=== PATIENT | female | born 1995 | race Caucasian/White ===

== ENCOUNTER 2016-08-09 17:18 | Emergency (ER) | payer OTHER | END 2016-08-09 18:30 | disposition home or self-care (01) | LOC: FER 17:18 | DX: S56.311A Strain of extensor or abductor muscles, fascia and tendons of right thumb at forearm level, initial encounter (principal); W01.0XXA Fall on same level from slipping, tripping and stumbling without subsequent striking against object, initial encounter | CPT/HCPCS: 73130; J1885 ==

== ENCOUNTER 2016-09-08 18:40 | Emergency (ER) | payer OTHER | END 2016-09-08 19:33 | disposition home or self-care (01) | LOC: FER 18:40 | DX: Z32.01 Encounter for pregnancy test, result positive (principal) ==

== ENCOUNTER 2016-11-14 09:29 | Emergency (ER) | payer OTHER ==
[2016-11-14 11:33] LABS: BILIRUBIN NEGATIVE (NEGATIVE); BLOOD 3+ Ery/uL (NEGATIVE); CLARITY HAZY (CLEAR); COLOR YELLOW (YELLOW); GLUCOSE (U) NORMAL (NORMAL); KETONE (U) TRACE mg/dL (NEGATIVE); LEUKOCYTES 3+ Leu/uL (NEGATIVE); NITRITE POSITIVE (NEGATIVE); PROTEIN TRACE (LOW) mg/dL (NEGATIVE); UROBILINOGEN 0.2 mg/dL (0.2-1.0); pH 7.5 (5.0-9.0)
[2016-11-14 11:49] LABS: BACTERIA 2+; URINARY RBC 20-50; URINARY WBC 20-50
== END 2016-11-14 12:13 | disposition home or self-care (01) ==
LOC: FER 09:29
PROVIDERS: Emergency Medicine
DX: O23.42 Unspecified infection of urinary tract in pregnancy, second trimester (principal); Z3A.14 14 weeks gestation of pregnancy
CPT/HCPCS: 36415; 81001; 84702; 99284

== ENCOUNTER 2020-12-23 10:13 | Emergency (ER) | payer OTHER ==
[~2020-12-23 10:13] MED LIST: KEFLEX500 MG PO; METHERGINE0.2 MG PO; NORCO 5-325 TA1 EACH PO; VIBRAMYCIN100 M1 PO
[2020-12-23 10:51] LABS: BASOPHIL 0.3 % (0-2); EOSINOPHIL 1.3 % (0-5); HCT 44.5 % (37.0-47.0); HGB 14.7 g/dl (12.5-16.0); LYMPHOCYTE 16.2 % (15-48); MCH 30.4 pg (25.0-31.0); MCV 92.1 fL (78.0-100.0); MONOCYTE 4.1 % (0-12); MPV 10.3 fL (6.0-9.5); NEUTROPHIL 77.9 % (41-80); NRBC 0; PLT 220 K/uL (150-400); RBC 4.83 M/uL (4.20-5.40); WBC 11.3 K/uL (4.0-10.5)
[2020-12-23 11:15] LABS: ALBUMIN 3.8 g/dL (3.4-5.0); BILIRUBIN - TOTAL 0.4 mg/dL (0.2-1.0); BUN/CREAT RATIO (CALC) 19.6 RATIO; CREATININE 0.46 mg/dL (0.51-0.95); GLOBULIN (CALCULATION) 3.3 g/dL; TOTAL PROTEIN 7.1 g/dL (6.4-8.2)
[2020-12-23] MEDS ORDERED: PEPCID AC20 MG PO (11:28)
== END 2020-12-23 12:02 | disposition home or self-care (01) ==
LOC: FER 10:13
PROVIDERS: Emergency Medicine
DX: K29.20 Alcoholic gastritis without bleeding (principal); F17.200 Nicotine dependence, unspecified, uncomplicated
CPT/HCPCS: 36415; 80053; 83690; 85025; 99284

== ENCOUNTER 2021-02-22 04:24 | Emergency (ER) | payer OTHER ==
[~2021-02-22 04:24] MED LIST changes: +PEPCID AC20 MG PO
[2021-02-22] MEDS ORDERED: VIBRAMYCIN100 MG PO ×2 (05:09→05:27)
[2021-02-22] MEDS ORDERED: ONDANSETRON ODT4 MG PO (05:27)
[2021-02-22] MEDS ORDERED: COUGH RELI15 MG/5 ML PO (05:27)
[2021-02-25 21:08] LABS: CHLAMYDIA TRACHOMATIS, NAA Positive (Negative); NEISSERIA GONORRHOEAE, NAA Negative (Negative)
== END 2021-02-22 06:45 | disposition home or self-care (01) ==
LOC: FER 04:24
PROVIDERS: Internal Medicine
DX: U07.1 COVID-19 (principal); J45.909 Unspecified asthma, uncomplicated; Z20.2 Contact with and (suspected) exposure to infections with a predominantly sexual mode of transmission
CPT/HCPCS: 71045; 87491; 87591; J0696; Q0162; U0002